=== PATIENT | male | born 1950 | race Caucasian/White ===

== ENCOUNTER 2018-07-31 08:41 | Outpatient (CLI) | payer OTHER | END 2018-07-31 23:59 | disposition home or self-care (01) | LOC: CFH 08:41 | PROVIDERS: ATTEND Internal Medicine Cardiovascular Disease | DX: I35.1 Nonrheumatic aortic (valve) insufficiency (principal) | CPT/HCPCS: 93306 ==

== ENCOUNTER 2020-10-19 18:02 | Emergency (ER) | payer SELFPAY ==
[~2020-10-19] VITALS: Ht 177.8 cm; Wt 98.7 kg
[2020-10-19 18:33] VITALS: BP 147/92
[2020-10-20] MEDS ORDERED: ATOR20TA37 PO (22:56)
[2020-10-20] MEDS ORDERED: AMLO-210 PO (22:56)
[2020-10-20] MEDS ORDERED: ASPI-963 PO ×2 (22:56)
[2020-10-20] MEDS ORDERED: METO50TA82 PO (22:56)
[2020-10-20] MEDS ORDERED: LISI-170 PO (22:56)
[2020-10-22] MEDS ORDERED: DIVA-61 PO (12:03)
== END 2020-10-19 20:14 | disposition left against medical advice (07) ==
LOC: ED 18:32
DX: R20.2 Paresthesia of skin (principal); Z53.21 Procedure and treatment not carried out due to patient leaving prior to being seen by health care provider